=== PATIENT | male | born 1980 | race American Indian/Alaskan Native ===

== ENCOUNTER 2019-10-13 18:55 | Emergency (ER) | payer SELFPAY ==
--- NOTE | 2019-10-13 20:13 | Emergency Department Report ---
Chief Complaint: Skin Rash Stated Complaint: RASH/REACTION Time Seen by Provider: 10/13/19 20:04 MSE screening note: Focused history and physical exam performed. Due to findings the following was ordered: Pt reports long hx of eczema. He's about 2 days ago he used a different soap [place]. Now with itching to his face, neck abdomen and arms. Denies cp and sob. No tongue swelling or throat pain or swelling. ED Medical Decision Making - Medical Decision Making 39 yo male with a hx of Eczema . Recently used a different soap and now c/o itching all over. He's taking benadryl with no relief. Resp easy and unlabored No post-pharyngeal swelling or erythema Lungs with clear breath sounds Skin dry no, hives or erythema noted. Plan prednisone 40 mg qd Hydroxzine Triamcinolone cream ED Disposition for MSE Clinical Impression: Contact dermatitis Qualifiers: Contact dermatitis type: unspecified Contact dermatitis trigger: unspecified trigger Qualified Code(s): L25.9 - Unspecified contact dermatitis, unspecified cause Disposition: TO HOME OR SELFCARE Is pt being admited?: No Does the pt Need Aspirin: No Condition: Stable Instructions: Contact Dermatitis (ED), Eczema (ED) Prescriptions: predniSONE [Deltasone] 40 mg PO QDAY 5 Days #10 tab Hydroxyzine HCl [hydrOXYzine] 50 mg PO Q6H PRN 7 Days #24 tablet PRN Reason: Allergy Symptoms Triamcinolone 0.5% [Kenalog 0.5% CREAM] 1 applic TP TID #30 gm Referrals: PRIMARY CARE, [Primary Care Provider] - 3-5 Days
== END 2019-10-13 21:41 | disposition home or self-care (01) ==
LOC: ED 18:55
DX: L25.9 Unspecified contact dermatitis, unspecified cause (principal); Z88.0 Allergy status to penicillin